=== PATIENT | male | born 1960 | race Caucasian/White ===

== ENCOUNTER 2016-11-09 08:41 | Day surgery (SDC) | payer OTHER ==
[~2016-11-09 08:41] MED LIST: ACETAMINOPHEN 1000MG/100 ML PREMIX IV ONE; LEVOFLOXACIN 500MG IVPB 100 ML IVPB ONE
[2016-11-09] MEDS ORDERED: BUPIVACAINE 0.25% W/EPI MPF 30ML VIAL IVP ONE (15:05)
--- NOTE | 2016-11-11 16:28 | Operative Note ---
DATE OF SURGERY: 11/09/16 PREOPERATIVE DIAGNOSIS: SOFT TISSUE MASS, RIGHT KNEE. POSTOPERATIVE DIAGNOSIS: SOFT TISSUE MASS, RIGHT KNEE. OPERATION: EXCISION OF SOFT TISSUE MASS, RIGHT KNEE. SURGEON: Ayden Dozier D.O. INDICATION: The patient is a 56-year-old male who presented to the clinic with freely moveable 3 cm mass basically overlying his right patellar tendon. He stated this has progressively gotten worse and painful for him. On exam, this is freely moveable, appears to be a cystic mass. He denies any trauma to the area. This almost has a clinical appearance of a sebaceous cyst but this would be a fairly unusual location to present. We did discuss excision, risks, benefits, and alternatives. We also discussed referral for an orthopedic surgeon. He understood this fully and desired to stay here for excision. PROCEDURE: Therefore, consent was signed and questions answered, he was taken to the Operating Room and placed in the supine position. A straight local anesthetic was used due to the patient's desire to drive home that day. His knee was prepped and draped in the usual sterile fashion. The area around the mass was then anesthetized with a total of 8 mL of 0.25% Sensorcaine with Epinephrine. An elliptical incision was made around the mass. This was carried down into the subcutaneous tissue. This did have the appearance of a sebaceous cyst. This was then fully dissected free with cautery. This was then passed off the field. The cyst was not ruptured. We did not enter or come even near his patellar tendon or knee joint. At this time, the subcutaneous tissue was closed with 3-0 Vicryl. The skin was closed with 3-0 nylon. The mass measured about 4 x 2 cm and mainly stuck out of his skin as opposed to going closer to the knee joint. Triple antibiotic ointment was placed. He was taken to the Recovery Room in satisfactory condition. Final pathology pending. Ayden Dozier D.O. Date & Time cc: Dr. Shaylee Schmid JOB NUMBER: [id number] [facility]
== END 2016-11-09 10:30 | disposition home or self-care (01) ==
LOC: SUR 08:41
PROVIDERS: ATTEND Surgery
DX: L72.0 Epidermal cyst (principal)
CPT/HCPCS: J1956